=== PATIENT | female | born 2000 | race African-American/Black ===

== ENCOUNTER 2021-12-29 02:14 | Emergency (ER) | payer MEDICAID ==
[~2021-12-29] VITALS: Ht 160 cm; Wt 57.0 kg
[2021-12-29] MEDS ORDERED: KETOROLAC 60MG/2ML VIAL IM ONE (04:15)
[2021-12-29] MEDS ORDERED: ACETAMINOPHEN 325MG TABLET PO ONE (04:15)
[2021-12-29 05:28] VITALS: BP 112/54
[2021-12-29] MEDS ORDERED: CYCLOBENZAPRINE 10MG TABLET PO ONE (05:30)
[2021-12-29] MEDS ORDERED: BENZ-16 MT (05:31)
[2021-12-29] MEDS ORDERED: IBUP-2030 MT (05:31)
== END 2021-12-29 06:16 | disposition home or self-care (01) ==
LOC: ER 02:14
DX: B34.9 Viral infection, unspecified (principal); Z20.822 Contact with and (suspected) exposure to COVID-19
CPT/HCPCS: 87426; 96372; 99283; C9803; J1885